=== PATIENT | male | born 1970 | race Native Hawaiian/Other Pacific Islander ===

== ENCOUNTER 2021-03-13 19:32 | Inpatient (IN) | payer OTHER ==
[~2021-03-13] VITALS: Ht 172.7 cm; Wt 112.4 kg
[2021-03-13 20:20] LABS: BASOPHILS % (AUTO) 1 % (0-10); EOSINOPHILS % (AUTO) 1 % (0-10); HEMATOCRIT 45 % (40-54); HEMOGLOBIN 15.8 G/DL (13.3-17.7); LYMPHOCYTES % (AUTO) 13 % (12-44); MEAN CORPUSCULAR HEMOGLOBIN 33 PG (25-34); MEAN CORPUSCULAR HGB CONC 35 G/DL (32-36); MEAN CORPUSCULAR VOLUME 96 FL (80-99); MEAN PLATELET VOLUME 11.1 FL (7.4-10.4); MONOCYTES % (AUTO) 10 % (0-12); NEUTROPHILS % (AUTO) 75 % (42-75); PLATELET COUNT 196 10^3/uL (130-400); WHITE BLOOD COUNT 8.5 10^3/uL (4.3-11.0)
[2021-03-13 20:21] LABS: BASOPHILS # (AUTO) 0.1 10^3/uL (0.0-0.1); LYMPHOCYTES # (AUTO) 1.1 X 10^3 (1.0-4.0); MONOCYTES # (AUTO) 0.9 X 10^3 (0.0-1.0); NEUTROPHILS # (AUTO) 6.4 X 10^3 (1.8-7.8)
[2021-03-13] MEDS ORDERED: NS IV 1000 ML 1,000 ML IV SCH (20:30)
[2021-03-13] MEDS ORDERED: FAMOTIDINE 20MG/2ML IV (PEPCID) IVP ONE (20:30)
[2021-03-13] MEDS ORDERED: ONDANSETRON 4 MG/2 ML (SDV) Z0FRAN IVP ONE (20:30)
[2021-03-13 20:36] LABS: BUN/CREATININE RATIO 9; CARBON DIOXIDE 27 MMOL/L (21-32); CHLORIDE 87 MMOL/L (98-107); CREATININE SERUM 0.97 MG/DL (0.60-1.30); GFR ESTIMATED 82; POTASSIUM 3.7 MMOL/L (3.6-5.0); SODIUM 136 MMOL/L (135-145)
[2021-03-13 20:37] LABS: ALANINE AMINOTRANSFERASE 35 U/L (0-55); ALBUMIN 4.6 GM/DL (3.2-4.5); ALKALINE PHOSPHATASE 72 U/L (40-136); BILIRUBIN,TOTAL 2.5 MG/DL (0.1-1.0); CALCIUM 10.5 MG/DL (8.5-10.1); GLUCOSE 117 MG/DL (70-105)
[2021-03-13] MEDS ORDERED: LORazepam INJ 2 MG/ML (ATIVAN) VIAL IVP ONE (21:00)
[2021-03-13 23:02] LABS: AMPHETAMINE SCREEN, URINE NEGATIVE (NEGATIVE); BARBITURATE SCREEN URINE NEGATIVE (NEGATIVE); BENZODIAZEPINES SCREEN URINE POSITIVE (NEGATIVE); CANNABINOID SCREEN, URINE POSITIVE (NEGATIVE); COCAINE SCREEN URINE NEGATIVE (NEGATIVE); METHADONE STAT NEGATIVE (NEGATIVE); METHAMPHETAMINE SCREEN URINE S NEGATIVE (NEGATIVE); OPIATE SCREEN URINE NEGATIVE (NEGATIVE); OXYCODONE STAT NEGATIVE (NEGATIVE); PROPOXYPHENE STAT NEGATIVE (NEGATIVE); TRICYCLIC ANTIDEPRESSANTS SCRE NEGATIVE (NEGATIVE)
--- NOTE | 2021-03-14 00:27 | ED General ---
General Chief Complaint: Abdominal/GI Problems Stated Complaint: DEHYDRATION;VOMITING Nursing Triage Note: Pt in per POV, with c/o nausea and vomiting for almost 2 weeks. Down here visiting when he got sick. States it is just mucous and only X1 in the past 12 hours. Denies diarrhea. Source of Information: Patient Exam Limitations: No Limitations History of Present Illness Date Seen by Provider: Mar 13, 2021 Time Seen by Provider: 19:45 Initial Comments Patient is a 50-year-old male who presents with history of alcoholism who presents with intermittent daily nausea and vomiting with epigastric pain for the past several days. Patient states he has vomited twice earlier today. He has been binge drinking daily for the past 2 weeks and states he is under significant social stress due to impending divorce. Patient reports a single episode of vertigo earlier this evening described as the room spinning. Vertigo was associated with a brief syncopal episode and has currently resolved. Denies headache and anterior neck pain. No fever chills or sweats. Currently denies abdominal pain. No hematemesis coffee-ground emesis melena hematochezia. No other acute symptoms or complaints. Denies history of alcohol withdrawal seizures Timing/Duration: Other Severity: Moderate (2 weeks) Modifying Factors: improves with Other Associated Systoms: Other Allergies and Home Medications Allergies Coded Allergies: No Known Drug Allergies (Unverified , 03/13/21) Patient Home Medication List Home Medication List Reviewed: Yes Review of Systems Review of Systems Constitutional: see HPI EENTM: see HPI Respiratory: see HPI Cardiovascular: see HPI Gastrointestinal: see HPI Genitourinary: see HPI Musculoskeletal: see HPI Skin: see HPI Psychiatric/Neurological: See HPI Hematologic/Lymphatic: See HPI Immunological/Allergic: see HPI All Other Systems Reviewed Negative Unless Noted: Yes Past Tkpthaq-Mbevjd-Kykumn Hx Patient Social History Tobacco Use?: No Use of E-Cig and/or Vaping dev: No Substance use?: No Alcohol Use?: Yes Immunizations Up To Date Influenza Vaccine Up-to-Date: Yes; Up-to-Date First/Initial COVID19 Vaccinat: october 2020 Physical Exam Vital Signs Vital Signs - First Documented 03/13/21 19:43 Temp 36.4 Pulse 119 Resp 14 B/P (MAP) 141/102 (115) O2 Delivery Room Air Capillary Refill : Less Than 3 Seconds Height, Weight, BMI Height: '" Weight: lbs. oz. kg; 39.00 BMI Method: General Appearance: Anxious Eyes: Bilateral Eye Normal Inspection, Bilateral Eye PERRL, Bilateral Eye EOMI HEENT: PERRL/EOMI, TMs Normal, Moist Mucous Membranes Neck: Full Range of Motion, Non Tender, Supple Respiratory: Chest Non Tender, Lungs Clear Cardiovascular: Regular Rate, Rhythm Gastrointestinal: Non Tender, Soft Back: Normal Inspection, No CVA Tenderness Neurologic/Psychiatric: Alert, Oriented x3 Skin: Normal Color, Warm/Dry Focused Exam Sepsis Stage: Ruled Out Progress/Results/Core Measures Suspected Sepsis SIRS Temperature: Pulse: 119 Respiratory Rate: 14 Laboratory Tests 03/13/21 19:43: White Blood Count 8.5 Blood Pressure 141 /102 Mean: 115 Laboratory Tests 03/13/21 19:43: Creatinine 0.97, Platelet Count 196, Total Bilirubin 2.5H Results/Orders Lab Results Laboratory Tests Test 03/13/21 19:43 03/13/21 22:22 Range/Units White Blood Count 8.5 4.3-11.0 10^3/uL Red Blood Count 4.72 4.35-5.85 10^6/uL Hemoglobin 15.8 13.3-17.7 G/DL Hematocrit 45 40-54 % Mean Corpuscular Volume 96 80-99 FL Mean Corpuscular Hemoglobin 33 25-34 PG Mean Corpuscular Hemoglobin Concent 35 32-36 G/DL Red Cell Distribution Width 13.3 10.0-14.5 % Platelet Count 196 130-400 10^3/uL Mean Platelet Volume 11.1 H 7.4-10.4 FL Immature Granulocyte % (Auto) 0 % Neutrophils (%) (Auto) 75 42-75 % Lymphocytes (%) (Auto) 13 12-44 % Monocytes (%) (Auto) 10 0-12 % Eosinophils (%) (Auto) 1 0-10 % Basophils (%) (Auto) 1 0-10 % Neutrophils # (Auto) 6.4 1.8-7.8 X 10^3 Lymphocytes # (Auto) 1.1 1.0-4.0 X 10^3 Monocytes # (Auto) 0.9 0.0-1.0 X 10^3 Eosinophils # (Auto) 0.0 0.0-0.3 10^3/uL Basophils # (Auto) 0.1 0.0-0.1 10^3/uL Immature Granulocyte # (Auto) 0.0 0.0-0.1 10^3/uL Sodium Level 136 135-145 MMOL/L Potassium Level 3.7 3.6-5.0 MMOL/L Chloride Level 87 L 98-107 MMOL/L Carbon Dioxide Level 27 21-32 MMOL/L Anion Gap 22 H 5-14 MMOL/L Blood Urea Nitrogen 9 7-18 MG/DL Creatinine 0.97 0.60-1.30 MG/DL Estimat Glomerular Filtration Rate 82 BUN/Creatinine Ratio 9 Glucose Level 117 H 70-105 MG/DL Calcium Level 10.5 H 8.5-10.1 MG/DL Corrected Calcium 8.5-10.1 MG/DL Total Bilirubin 2.5 H 0.1-1.0 MG/DL Aspartate Amino Transf (AST/SGOT) 77 H 5-34 U/L Alanine Aminotransferase (ALT/SGPT) 35 0-55 U/L Alkaline Phosphatase 72 40-136 U/L Troponin I < 0.30 <0.30 NG/ML Total Protein 9.0 H 6.4-8.2 GM/DL Albumin 4.6 H 3.2-4.5 GM/DL Serum Alcohol < 10 <10 MG/DL Urine Opiates Screen NEGATIVE NEGATIVE Urine Oxycodone Screen NEGATIVE NEGATIVE Urine Methadone Screen NEGATIVE NEGATIVE Urine Propoxyphene Screen NEGATIVE NEGATIVE Urine Barbiturates Screen NEGATIVE NEGATIVE Ur Tricyclic Antidepressants Screen NEGATIVE NEGATIVE Urine Phencyclidine Screen NEGATIVE NEGATIVE Urine Amphetamines Screen NEGATIVE NEGATIVE Urine Methamphetamines Screen NEGATIVE NEGATIVE Urine Benzodiazepines Screen POSITIVE H NEGATIVE Urine Cocaine Screen NEGATIVE NEGATIVE Urine Cannabinoids Screen POSITIVE H NEGATIVE My Orders Orders - RIGO DODD DO Cbc With Automated Diff (03/13/21 20:12) Comprehensive Metabolic Panel (03/13/21 20:12) Troponin I Fs (03/13/21 20:12) Ekg-Prn For Chest Pain Or Rhyt (03/13/21 20:12) Famotidine Injection (Pepcid Injection) (03/13/21 20:30) Ondansetron Injection (Zofran Injectio (03/13/21 20:30) Ns Iv 1000 Ml (Sodium Chloride 0.9%) (03/13/21 20:30) Lorazepam Injection (Ativan Injection) (03/13/21 21:00) Alcohol (03/13/21 20:50) Drug Screen Stat (Urine) (03/13/21 21:39) Medications Given in ED Current Medications Medications Dose Ordered Sig/Nirmala Route Start Time Stop Time Status Last Admin Dose Admin Famotidine 20 mg ONCE ONCE IVP 03/13/21 20:30 03/13/21 20:31 DC 03/13/21 20:40 20 MG Lorazepam 1 mg ONCE ONCE IVP 03/13/21 21:00 03/13/21 21:01 DC 03/13/21 21:23 1 MG Ondansetron HCl 4 mg ONCE ONCE IVP 03/13/21 20:30 03/13/21 20:31 DC 03/13/21 20:40 4 MG Vital Signs/I&O 03/13/21 19:43 Temp 36.4 Pulse 119 Resp 14 B/P (MAP) 141/102 (115) O2 Delivery Room Air Capillary Refill : Less Than 3 Seconds Blood Pressure Mean: 115 Departure Communication (Admissions) EKG: Date 03/13/2021, 21: 39: Sinus tachycardia, ST elevation in anterior lateral leads. Patient given IV fluids, antiemetics, Pepcid and Ativan with significant provement of symptoms. Denies history of CAD or chest pain. Patient with notable ST changes present. Troponin negative. Will transfer to [facility] for treatment of alcoholic gastritis and further cardiac work-up Impression Primary Impression: Alcoholic gastritis Additional Impression: Abnormal EKG Disposition: ADMITTED INPATIENT Condition: Stable Admissions Decision to Admit Reason: Admit from ER (General) Decision to Admit/Date: Mar 13, 2021 Time/Decision to Admit Time: 22:45 Departure-Patient Inst. Referrals: NO,LOCAL PHYSICIAN (PCP/Family) Primary Care Physician RIGO DODD DO Mar 14, 2021 00:27
[2021-03-14] MEDS ORDERED: NS IV 1000 ML 1,000 ML ONE (01:29)
[2021-03-14 01:31] VITALS: BP 131/95
[2021-03-14] MEDS ORDERED: ONDANSETRON 4 MG/2 ML (SDV) Z0FRAN IV PRN ×2 (01:45→18:30)
[2021-03-14] MEDS: NS IV 1000 ML 1,000 ML IV SCH ×2 (02:11→09:53)
[2021-03-14 03:52] LABS: BASOPHILS # (AUTO) 0.1 10^3/uL (0.0-0.1); BASOPHILS % (AUTO) 1 % (0-10); EOSINOPHILS % (AUTO) 1 % (0-10); HEMATOCRIT 40 % (40-54); HEMOGLOBIN 13.6 g/dL (13.3-17.7); LYMPHOCYTES # (AUTO) 1.3 10^3/uL (1.0-4.0); LYMPHOCYTES % (AUTO) 23 % (12-44); MEAN CORPUSCULAR HEMOGLOBIN 33 pg (25-34); MEAN CORPUSCULAR HGB CONC 34 g/dL (32-36); MEAN CORPUSCULAR VOLUME 99 fL (80-99); MEAN PLATELET VOLUME 11.2 fL (9.0-12.2); MONOCYTES # (AUTO) 0.7 10^3/uL (0.0-1.0); MONOCYTES % (AUTO) 13 % (0-12); NEUTROPHILS # (AUTO) 3.5 10^3/uL (1.8-7.8); NEUTROPHILS % (AUTO) 62 % (42-75); PLATELET COUNT 160 10^3/uL (130-400); WHITE BLOOD COUNT 5.6 10^3/uL (4.3-11.0)
[2021-03-14 04:03] LABS: ALBUMIN 3.8 GM/DL (3.2-4.5); CHLORIDE 94 MMOL/L (98-107); POTASSIUM 3.3 MMOL/L (3.6-5.0); SODIUM 138 MMOL/L (135-145)
[2021-03-14 04:04] LABS: CALCIUM 9.2 MG/DL (8.5-10.1)
[2021-03-14 04:05] LABS: GLUCOSE 97 MG/DL (70-105); TOTAL PROTEIN 7.7 GM/DL (6.4-8.2)
[2021-03-14 04:07] LABS: BILIRUBIN,TOTAL 1.9 MG/DL (0.1-1.0); CARBON DIOXIDE 26 MMOL/L (21-32)
[2021-03-14 04:09] LABS: ALKALINE PHOSPHATASE 54 U/L (40-136); CREATININE SERUM 0.96 MG/DL (0.60-1.30); GFR ESTIMATED 83
[2021-03-14 04:10] LABS: BUN/CREATININE RATIO 9
[2021-03-14 04:12] LABS: ALANINE AMINOTRANSFERASE 31 U/L (0-55)
[2021-03-14 04:32] VITALS: BP 122/66
[2021-03-14] MEDS ORDERED: ACETAMINOPHEN 500 MG TAB (TYLENOL) PO PRN (06:15)
[2021-03-14] MEDS: PANTOPRAZOLE 40 MG (PROTONIX) VIAL IV SCH ×2 (07:45→20:12)
[2021-03-14 08:09] VITALS: BP 154/103
[2021-03-14] MEDS ORDERED: meTOproloL SUCCINATE 50 MG (TOPROL XL) TAB PO NR (08:31)
[2021-03-14] MEDS ORDERED: MAGNESIUM 1 GM/100 ML IVPB 100 ML IV NR (08:31)
[2021-03-14] MEDS ORDERED: KCL 20 MEQ TAB (K-DUR) PO NR (08:31)
--- NOTE | 2021-03-14 08:31 | Consultation-Cardiology ---
HPI-Cardiology Cardiology Consultation: Date of Consultation 03/14/21 Time Seen by a Provider: 08:10 Date of Admission 03-13-21 Attending Physician Rg Perez MD Admitting Physician No,Local Physician Consulting Physician Juan Arrieta MD HPI: Chief Complaint: Syncope Mr. Mei is a 50 yr old male admitted to [facility] from the [facility] ED. He reports he is from [place], [place] and has been visiting a friend in [facility] since February 23. [facility] [place] He reports he drinks approx 1/5 of Vodka daily. He states his last drink was a day ago. He reports he was getting out of the shower at home yesterday morning when he began to feel weak and dizzy. He reports he went to grab his clothes and "blacked out" coming to when he hit the floor. He reports he was able to get up and then he subsequently passed out again, this time he believes he was out for several minutes, but is unsure. He states he got up slowly and has had no further episodes. He reports he has had n/v for the last several weeks. He denies any c/o CP, SOB, palpitations. No c/o LE swelling. He reports he continues to feel nauseated. Review of Systems-Cardiology Review of Systems Constitutional: No chills, No fever; malaise Eyes: No vision change Ears/Nose/Throat: No epistaxis, No recent hearing loss Respiratory: As described under HPI Cardiovascular: As described under HPI Gastrointestinal: As described under HPI Genitourinary: No dysuria, No hematuria Musculoskeletal: other (chronic right FA pain and first 3 digit numbness following surgery) Skin: No rash on exposed areas, No ulcerations on exposed areas Psychiatric/Neurological: depression; No anxiety, No focal weakness, No syncope Hematologic: No bleeding abnormalities All Other Systems Reviewed Negative Unless Noted: Yes QAB-Oyyzdc-Hjnbzl Hx Patient Social History Smoking Status: Never a Smoker Have you traveled recently?: No Alcohol Use?: Yes Pt feels they are or have been: No Past Medical History PMH As described under Assessment. Family Medical History Family Medical History: No reported family h/o CAD. Allergies and Home Medications Allergies Coded Allergies: No Known Drug Allergies (Unverified , 03/13/21) Physical Exam-Cardiology Physical Exam Vital Signs/I&O 03/13/21 03/13/21 03/14/21 03/14/21 21:15 22:30 00:32 00:49 Temp 36.4 36.4 36.4 36.4 Pulse 111 113 116 104 Resp 14 16 14 B/P (MAP) 148/102 (117) 138/101 (113) 129/90 (103) 141/89 Pulse Ox 97 98 O2 Delivery Room Air Room Air Room Air Room Air 03/14/21 03/14/21 03/14/21 03/14/21 01:31 01:31 02:00 04:32 Temp 36.7 Pulse 112 103 70 Resp 14 27 B/P (MAP) 131/95 (107) 122/66 (84) Pulse Ox 95 96 O2 Delivery Room Air Room Air Room Air 03/14/21 03/14/21 07:00 08:09 Temp 36.0 Pulse 92 100 Resp 13 B/P (MAP) 154/103 (120) Pulse Ox 96 O2 Delivery Room Air Capillary Refill : Less Than 3 Seconds Constitutional: AAO x 3, well-developed, well-nourished HEENT: PERRL, hearing is well preserved, oral hygience is good Neck: No carotid bruit; carotid pulses are 2 + bilaterally Respiratory: No accessory muscle use, No respiratory distress; chest expansion is symmetric, chest is bilaterally symmetric, lungs clear to auscultation Cardiovascular: regular rate-rhythm; No JVD; S1 and S2 Gastrointestinal: No tender; soft, round, audible bowel sounds Extremities: no lower extremity edema bilateral Neurologic/Psychiatric: grossly intact (moves all extremities) Skin: No rash on exposed areas, No ulcerations on exposed areas Data Review Labs Laboratory Tests 03/13/21 19:43: White Blood Count 8.5, Red Blood Count 4.72, Hemoglobin 15.8, Hematocrit 45, Mean Corpuscular Volume 96, Mean Corpuscular Hemoglobin 33, Mean Corpuscular Hemoglobin Concent 35, Red Cell Distribution Width 13.3, Platelet Count 196, Mean Platelet Volume 11.1H, Immature Granulocyte % (Auto) 0, Neutrophils (%) (Auto) 75, Lymphocytes (%) (Auto) 13, Monocytes (%) (Auto) 10, Eosinophils (%) (Auto) 1, Basophils (%) (Auto) 1, Neutrophils # (Auto) 6.4, Lymphocytes # (Auto) 1.1, Monocytes # (Auto) 0.9, Eosinophils # (Auto) 0.0, Basophils # (Auto) 0.1, Immature Granulocyte # (Auto) 0.0, Sodium Level 136, Potassium Level 3.7, Chloride Level 87L, Carbon Dioxide Level 27, Anion Gap 22H, Blood Urea Nitrogen 9, Creatinine 0.97, Estimat Glomerular Filtration Rate 82, BUN/Creatinine Ratio 9, Glucose Level 117H, Calcium Level 10.5H, Corrected Calcium , Total Bilirubin 2.5H, Aspartate Amino Transf (AST/SGOT) 77H, Alanine Aminotransferase (ALT/SGPT) 35, Alkaline Phosphatase 72, Troponin I < 0.30, Total Protein 9.0H, Albumin 4.6H , Serum Alcohol < 10 03/13/21 22:22: Urine Opiates Screen NEGATIVE, Urine Oxycodone Screen NEGATIVE, Urine Methadone Screen NEGATIVE, Urine Propoxyphene Screen NEGATIVE, Urine Barbiturates Screen NEGATIVE, Ur Tricyclic Antidepressants Screen NEGATIVE, Urine Phencyclidine Screen NEGATIVE, Urine Amphetamines Screen NEGATIVE, Urine Methamphetamines Screen NEGATIVE, Urine Benzodiazepines Screen POSITIVEH, Urine Cocaine Screen NEGATIVE, Urine Cannabinoids Screen POSITIVEH 03/14/21 03:21: White Blood Count 5.6, Red Blood Count 4.10L, Hemoglobin 13.6, Hematocrit 40, Mean Corpuscular Volume 99, Mean Corpuscular Hemoglobin 33, Mean Corpuscular Hemoglobin Concent 34, Red Cell Distribution Width 13.3, Platelet Count 160, Mean Platelet Volume 11.2, Immature Granulocyte % (Auto) 0, Neutrophils (%) (Auto) 62, Lymphocytes (%) (Auto) 23, Monocytes (%) (Auto) 13H, Eosinophils (%) (Auto) 1, Basophils (%) (Auto) 1, Neutrophils # (Auto) 3.5, Lymphocytes # (Auto) 1.3, Monocytes # (Auto) 0.7, Eosinophils # (Auto) 0.0, Basophils # (Auto) 0.1, Immature Granulocyte # (Auto) 0.0, Sodium Level 138, Potassium Level 3.3L, C hloride Level 94L, Carbon Dioxide Level 26, Anion Gap 18H, Blood Urea Nitrogen 9, Creatinine 0.96, Estimat Glomerular Filtration Rate 83, BUN/Creatinine Ratio 9, Glucose Level 97, Calcium Level 9.2, Corrected Calcium 9.4, Total Bilirubin 1.9H, Aspartate Amino Transf (AST/SGOT) 64H, Alanine Aminotransferase (ALT/SGPT) 31, Alkaline Phosphatase 54, Troponin I < 0.028, Total Protein 7.7, Albumin 3.8 Laboratory Tests 03/13/21 19:43 03/14/21 03:21 A/P-Cardiology Assessment/Admission Diagnosis Syncope of undetermined etiology HTN GERD Sleep apnea - CPAP tx Nausea and vomiting of undetermined etiology - medical services managing ETOH - 1/5 Vodka daily - immediate cessation advised Hypokalemia - likely secondary to chronic ETOH usage and vomiting Discussion and Recomendations Syncope of undetermined etiology - continue on tele to eval for arrhythmia Hypertension - start Toprol XL Repeat EKG Replace electrolytes Echocardiogram to eval structure and function Monitor lab Replace as indicated Management of n/v is per medical services Immediate and complete cessation of ETOH advise - monitor for withdrawal - management per medical Further recs will be based on his hospital course We would like to thank medical services for this consult GREG HENRY Mar 14, 2021 08:31
[2021-03-14] MEDS: meTOproloL SUCCINATE 50 MG (TOPROL XL) TAB PO SCH (08:43)
[2021-03-14] MEDS ORDERED: FAMOTIDINE 20MG/2ML IV (PEPCID) IVP SCH (09:00)
[2021-03-14] MEDS ORDERED: ASPIRIN 81 MG CHEW (CHILDREN'S ASA) PO SCH (09:00)
[2021-03-14 11:00] VITALS: BP 145/81
[2021-03-14] MEDS ORDERED: ACET-2267 PO (13:25)
[2021-03-14] MEDS ORDERED: PANT40TA52 PO (13:25)
--- NOTE | 2021-03-14 14:18 | Consultation - Surgery ---
History of Present Illness History of Present Illness Patient Consulted On(pushpa/time) 03/14/21 14:18 Date Seen by Provider: Mar 14, 2021 Time Seen by Provider: 14:18 History of Present Illness Consult requested by Dr. Green for gastritis. Patient is a 50 year old male from [facility]. Here visiting family. Has been drinking daily about a 1/5 per day of alcohol. Has been having nausea and vomiting. Worsened with drinking, better with not drinking. Typically does not drink this month but has increased since being here. Patient has also had couple episodes of passing out and came to ED for further evaluation. Patient states last time he had emesis was early this morning. No blood in emesis. Patient denies fever sweats chills shortness of breath or chest pain. Has not had any imaging. Allergies and Home Medications Allergies Coded Allergies: No Known Drug Allergies (Unverified , 03/13/21) Home Medications Acetaminophen 500 Mg Tablet, 1,000 MG PO Q8H PRN for PAIN-MILD (1-4), (Reported) Last Action: Reviewed Pantoprazole Sodium 40 Mg Tablet.dr, 40 MG PO BID, (Reported) Last Action: Reviewed Patient Home Medication List Home Medication List Reviewed: Yes Past Nqchkad-Yharfv-Psieku Hx Patient Social History Smoking Status: Never a Smoker Alcohol Use?: Yes Have you traveled recently?: No Surgeries History of Surgeries: No Respiratory History of Respiratory Disorde: No Cardiovascular History of Cardiac Disorders: No Neurological History of Neurological Disord: No Genitourinary History of Genitourinary Disor: No Gastrointestinal History of Gastrointestinal Di: No Musculoskeletal History of Musculoskeletal Dis: No Endocrine History of Endocrine Disorders: No HEENT History of HEENT Disorders: No Cancer History of Cancer: No Psychosocial Behavioral Health Disorders: PTSD Reviewed Nursing Assessment Reviewed/Agree w Nursing PMH: Yes Family Medical History Significant Family History: No Pertinent Family Hx Review of Systems-General Constitutional: No chills, No diaphoresis EENTM: No blurred vision, No double vision Cardiovascular: syncope Gastrointestinal: No abdominal pain; nausea, vomiting Genitourinary: No decreased output, No discharge Musculoskeletal: No back pain, No joint pain Skin: No change in color, No change in hair/nails Psychiatric/Neurological: Denies Anxiety, Denies Depressed, Denies Emotional Problems All Other Systems Reviewed Negative Unless Noted: Yes (Negative excepted noted.) Physical Exam-General Problems Physical Exam Vital Signs Vital Signs - First Documented 03/13/21 03/13/21 19:43 22:30 Temp 36.4 Pulse 119 Resp 14 B/P (MAP) 141/102 (115) Pulse Ox 97 O2 Delivery Room Air Capillary Refill : Less Than 3 Seconds General Appearance: WD/WN, no apparent distress HEENT: PERRL/EOMI, normal ENT inspection Neck: non-tender, supple Respiratory: chest non-tender, no respiratory distress, no accessory muscle use Cardiovascular: regular rate, rhythm, no JVD Gastrointestinal: non tender, soft, no organomegaly Rectal: deferred Back: normal inspection, no CVA tenderness, no vertebral tenderness Extremities: normal range of motion, non-tender Neurologic/Psychiatric: ticket manager II-XII nml as tested, no motor/sensory deficits, alert, normal mood/affect, oriented x 3 Skin: normal color, warm/dry Lymphatic: no adenopathy Data Review Labs Laboratory Tests 03/13/21 19:43: White Blood Count 8.5, Red Blood Count 4.72, Hemoglobin 15.8, Hematocrit 45, Mean Corpuscular Volume 96, Mean Corpuscular Hemoglobin 33, Mean Corpuscular Hemoglobin Concent 35, Red Cell Distribution Width 13.3, Platelet Count 196, Mean Platelet Volume 11.1H, Immature Granulocyte % (Auto) 0, Neutrophils (%) (Auto) 75, Lymphocytes (%) (Auto) 13, Monocytes (%) (Auto) 10, Eosinophils (%) (Auto) 1, Basophils (%) (Auto) 1, Neutrophils # (Auto) 6.4, Lymphocytes # (Auto) 1.1, Monocytes # (Auto) 0.9, Eosinophils # (Auto) 0.0, Basophils # (Auto) 0.1, Immature Granulocyte # (Auto) 0.0, Sodium Level 136, Potassium Level 3.7, Chloride Level 87L, Carbon Dioxide Level 27, Anion Gap 22H, Blood Urea Nitrogen 9, Creatinine 0.97, Estimat Glomerular Filtration Rate 82, BUN/Creatinine Ratio 9, Glucose Level 117H, Calcium Level 10.5H, Corrected Calcium , Total Bilirubin 2.5H, Aspartate Amino Transf (AST/SGOT) 77H, Alanine Aminotransferase (ALT/SGPT) 35, Alkaline Phosphatase 72, Troponin I < 0.30, Total Protein 9.0H, Albumin 4.6H , Serum Alcohol < 10 03/13/21 22:22: Urine Opiates Screen NEGATIVE, Urine Oxycodone Screen NEGATIVE, Urine Methadone Screen NEGATIVE, Urine Propoxyphene Screen NEGATIVE, Urine Barbiturates Screen NEGATIVE, Ur Tricyclic Antidepressants Screen NEGATIVE, Urine Phencyclidine Screen NEGATIVE, Urine Amphetamines Screen NEGATIVE, Urine Methamphetamines Screen NEGATIVE, Urine Benzodiazepines Screen POSITIVEH, Urine Cocaine Screen NEGATIVE, Urine Cannabinoids Screen POSITIVEH 03/14/21 03:21: White Blood Count 5.6, Red Blood Count 4.10L, Hemoglobin 13.6, Hematocrit 40, Mean Corpuscular Volume 99, Mean Corpuscular Hemoglobin 33, Mean Corpuscular Hemoglobin Concent 34, Red Cell Distribution Width 13.3, Platelet Count 160, Mean Platelet Volume 11.2, Immature Granulocyte % (Auto) 0, Neutrophils (%) (Auto) 62, Lymphocytes (%) (Auto) 23, Monocytes (%) (Auto) 13H, Eosinophils (%) (Auto) 1, Basophils (%) (Auto) 1, Neutrophils # (Auto) 3.5, Lymphocytes # (Auto) 1.3, Monocytes # (Auto) 0.7, Eosinophils # (Auto) 0.0, Basophils # (Auto) 0.1, Immature Granulocyte # (Auto) 0.0, Sodium Level 138, Potassium Level 3.3L, Chloride Level 94L, Carbon Dioxide Level 26, Anion Gap 18H, Blood Urea Nitrogen 9, Creatinine 0.96, Estimat Glomerular Filtration Rate 83, BUN/Creatinine Ratio 9, Glucose Level 97, Calcium Level 9.2, Corrected Calcium 9.4, Total Bilirubin 1.9H, Aspartate Amino Transf (AST/SGOT) 64H, Alanine Aminotransferase (ALT/SGPT) 31, Alkaline Phosphatase 54, Troponin I < 0.028, Total Protein 7.7, Albumin 3.8 Assessment/Plan Assessment/Plan Assessment/Plan GERD Nausea vomiting Syncope PTSD alcoholic gastritis alcohol abuse Patient no abdominal pain, last emesis/nausea this morning trial of clears rec cessation of EtOH PPI Advance diet if no further n/v Cardiology consulted If continues to be persistent will consider EGD, if not, would rec patient to follow up with PCP and arrange outpatient. CHRISTOPHER RAO DO Mar 14, 2021 14:18
[2021-03-14 16:09] VITALS: BP 130/92
--- NOTE | 2021-03-14 16:17 | Consultation-Cardiology ---
HPI-Cardiology Cardiology Consultation: Date of Consultation 03/14/21 Time Seen by a Provider: 16:00 Date of Admission Attending Physician Rg Perez MD Admitting Physician No,Local Physician Consulting Physician RUTH ANGELO MD, MA, FACP, FACC, FSCAI, CCDS HPI: Chief Complaint: Syncope Mr. Mei is a 50 yr old male admitted to [facility] from the [facility] ED. He reports he is from [place], [place] and has been visiting a friend in [facility] since February 23. [facility] [place] He reports he drinks approx 1/5 of Vodka daily. He states his last drink was a day ago. He reports he was getting out of the shower at home yesterday morning when he began to feel weak and dizzy. He reports he went to grab his clothes and "blacked out" coming to when he hit the floor. He reports he was able to get up and then he subsequently passed out again, this time he believes he was out for several minutes, but is unsure. He states he got up slowly and has had no further episodes. He reports he has had n/v for the last several weeks. He denies any c/o CP, SOB, palpitations. No c/o LE swelling. He reports he continues to feel nauseated. Review of Systems-Cardiology Review of Systems Constitutional: No chills, No fever; malaise Eyes: No vision change Ears/Nose/Throat: No epistaxis, No recent hearing loss Respiratory: As described under HPI Cardiovascular: As described under HPI Gastrointestinal: As described under HPI Genitourinary: No dysuria, No hematuria Musculoskeletal: other (chronic right FA pain and first 3 digit numbness following surgery) Skin: No rash on exposed areas, No ulcerations on exposed areas Psychiatric/Neurological: depression; No anxiety, No focal weakness, No syncope Hematologic: No bleeding abnormalities All Other Systems Reviewed Negative Unless Noted: Yes BEM-Sgejfv-Hwntdb Hx Patient Social History Smoking Status: Never a Smoker Have you traveled recently?: No Alcohol Use?: Yes Pt feels they are or have been: No Past Medical History PMH As described under Assessment. Family Medical History Family Medical History: No reported family h/o CAD. Allergies and Home Medications Allergies Coded Allergies: No Known Drug Allergies (Unverified , 03/13/21) Home Medications Acetaminophen 500 Mg Tablet, 1,000 MG PO Q8H PRN for PAIN-MILD (1-4), (Reported) Last Action: Reviewed Pantoprazole Sodium 40 Mg Tablet.dr, 40 MG PO BID, (Reported) Last Action: Reviewed Patient Home Medication List Home Medication List Reviewed: Yes Physical Exam-Cardiology Physical Exam Vital Signs/I&O 03/14/21 03/14/21 03/14/21 03/14/21 04:32 07:00 08:09 09:40 Temp 36.0 Pulse 70 92 100 Resp 27 13 B/P (MAP) 122/66 (84) 154/103 (120) Pulse Ox 96 96 O2 Delivery Room Air Room Air Room Air 03/14/21 03/14/21 03/14/21 11:00 12:55 16:09 Temp 36.4 37.0 Pulse 79 88 89 Resp 16 18 B/P (MAP) 145/81 (102) 130/92 (105) Pulse Ox 94 94 O2 Delivery Room Air Room Air Capillary Refill : Less Than 3 Seconds Constitutional: AAO x 3, well-developed, well-nourished HEENT: PERRL, hearing is well preserved, oral hygience is good Neck: No carotid bruit; carotid pulses are 2 + bilaterally Respiratory: No accessory muscle use, No respiratory distress; chest expansion is symmetric, chest is bilaterally symmetric, lungs clear to auscultation Cardiovascular: regular rate-rhythm; No JVD; S1 and S2 Gastrointestinal: No tender; soft, round, audible bowel sounds Extremities: no lower extremity edema bilateral Neurologic/Psychiatric: oriented x 3, other (moves all limbs equally) Skin: No rash on exposed areas, No ulcerations on exposed areas Data Review Labs Laboratory Tests 03/13/21 19:43: White Blood Count 8.5, Red Blood Count 4.72, Hemoglobin 15.8, Hematocrit 45, Mean Corpuscular Volume 96, Mean Corpuscular Hemoglobin 33, Mean Corpuscular Hemoglobin Concent 35, Red Cell Distribution Width 13.3, Platelet Count 196, Mean Platelet Volume 11.1H, Immature Granulocyte % (Auto) 0, Neutrophils (%) (Auto) 75, Lymphocytes (%) (Auto) 13, Monocytes (%) (Auto) 10, Eosinophils (%) (Auto) 1, Basophils (%) (Auto) 1, Neutrophils # (Auto) 6.4, Lymphocytes # (Auto) 1.1, Monocytes # (Auto) 0.9, Eosinophils # (Auto) 0.0, Basophils # (Auto) 0.1, Immature Granulocyte # (Auto) 0.0, Sodium Level 136, Potassium Level 3.7, Chloride Level 87L, Carbon Dioxide Level 27, Anion Gap 22H, Blood Urea Nitrogen 9, Creatinine 0.97, Estimat Glomerular Filtration Rate 82, BUN/Creatinine Ratio 9, Glucose Level 117H, Calcium Level 10.5H, Corrected Calcium , Total Bilirubin 2.5H, Aspartate Amino Transf (AST/SGOT) 77H, Alanine Aminotransferase (ALT/SGPT) 35, Alkaline Phosphatase 72, Troponin I < 0.30, Total Protein 9.0H, Albumin 4.6H , Serum Alcohol < 10 03/13/21 22:22: Urine Opiates Screen NEGATIVE, Urine Oxycodone Screen NEGATIVE, Urine Methadone Screen NEGATIVE, Urine Propoxyphene Screen NEGATIVE, Urine Barbiturates Screen NEGATIVE, Ur Tricyclic Antidepressants Screen NEGATIVE, Urine Phencyclidine Screen NEGATIVE, Urine Amphetamines Screen NEGATIVE, Urine Methamphetamines Screen NEGATIVE, Urine Benzodiazepines Screen POSITIVEH, Urine Cocaine Screen NEGATIVE, Urine Cannabinoids Screen POSITIVEH 03/14/21 03:21: White Blood Count 5.6, Red Blood Count 4.10L, Hemoglobin 13.6, Hematocrit 40, Mean Corpuscular Volume 99, Mean Corpuscular Hemoglobin 33, Mean Corpuscular Hemoglobin Concent 34, Red Cell Distribution Width 13.3, Platelet Count 160, Mean Platelet Volume 11.2, Immature Granulocyte % (Auto) 0, Neutrophils (%) (Auto) 62, Lymphocytes (%) (Auto) 23, Monocytes (%) (Auto) 13H, Eosinophils (%) (Auto) 1, Basophils (%) (Auto) 1, Neutrophils # (Auto) 3.5, Lymphocytes # (Auto) 1.3, Monocytes # (Auto) 0.7, Eosinophils # (Auto) 0.0, Basophils # (Auto) 0.1, Immature Granulocyte # (Auto) 0.0, Sodium Level 138, Potassium Level 3.3L, Chloride Level 94L, Carbon Dioxide Level 26, Anion Gap 18H, Blood Urea Nitrogen 9, Creatinine 0.96, Estimat Glomerular Filtration Rate 83, BUN/Creatinine Ratio 9, Glucose Level 97, Calcium Level 9.2, Corrected Calcium 9.4, Total Bilirubin 1.9H, Aspartate Amino Transf (AST/SGOT) 64H, Alanine Aminotransferase (ALT/SGPT) 31, Alkaline Phosphatase 54, Troponin I < 0.028, Total Protein 7.7, Albumin 3.8 03/14/21 15:58: Glucometer 99 A/P-Cardiology Assessment/Admission Diagnosis Syncope of undetermined etiology - tele has not indicated any arrhythmia, so far - no evidence of ACS - Echo of 03/14/21: LVEF 60-65%, PASP within normal limits HTN, controlled GERD Sleep apnea - CPAP tx Nausea and vomiting of undetermined etiology - medical services managing ETOH - 1/5 Vodka daily - immediate cessation advised Hypokalemia - likely secondary to chronic ETOH usage and vomiting Discussion and Recomendations Syncope of undetermined etiology - continue on tele to eval for arrhythmia. ILR advised, discussed. He has not agreed to ILR, states will consider once he is back home to [place] Hypertension - start Toprol XL Repeat EKG Replace electrolytes Monitor lab Management of n/v and possible alcohol withdrawal is with the Med Svce Immediate and complete cessation of ETOH advise - monitor for withdrawal - management per medical RUTH ANGELO MD FACP FAC CCDS Mar 14, 2021 16:17
[2021-03-14] MEDS ORDERED: ACETAMINOPHEN 325 MG TABLET PO PRN (18:30)
[2021-03-14] MEDS ORDERED: ANTACID SUSP 30 ML UDC (MYLANTA) PO PRN (18:30)
[2021-03-14] MEDS ORDERED: D5 1/2 NS 1000 ML IV SOLUTION 1,000 ML IV PRN (18:30)
[2021-03-14] MEDS ORDERED: SENNA W/DOCUSATE (SENOKOT S) TABLET PO PRN (18:30)
[2021-03-14] MEDS ORDERED: LORazepam INJ 2 MG/ML (ATIVAN) VIAL IV PRN (18:30)
[2021-03-14] MEDS ORDERED: LORazepam 1 MG (ATIVAN) TAB PO PRN (18:30)
[2021-03-14] MEDS ORDERED: 1/2 NS IV SOLUTION 1,000 ML IV PRN (18:30)
[2021-03-14] MEDS ORDERED: LORazepam INJ 2 MG/ML (ATIVAN) VIAL IM/IV PRN (18:30)
[2021-03-14] MEDS ORDERED: ENOXAPARIN 40 MG/0.4 ML (LOVENOX) SYR SC SCH (18:30)
[2021-03-14] MEDS ORDERED: ONDANSETRON 4 MG (ZOFRAN) ORAL DISSOLVE TAB SL PRN (18:30)
--- NOTE | 2021-03-14 18:32 | History & Physical-Hospitalist ---
History of Present Illness HPI/Chief Complaint Madhav Mei is a 50-year-old male who presented with nausea and vomiting. He reports that this has been going on for couple weeks. He has been drinking daily for about 3 or 4 weeks. He says he is undergoing a divorce. He reports that he has had alcohol withdrawal before, but has never been admitted to the hospital. His last episode of nausea and vomiting was this morning. He denies any abdominal pain. He reports some pain in his esophagus. He denies having any blood in his vomit. He denies diarrhea and blood in his stools. He says that he has had an EGD before by had does not think they found anything. He denies any chest pain or palpitations. He denies any shortness of breath. He does have a cough. He denies any fevers or chills. He reports that he had 2 episodes where he lost consciousness. Source: patient Exam Limitations: no limitations Date Seen 03/14/21 Time Seen by a Provider: 11:00 Attending Physician Rg Perez MD PCP No,Local Physician Referring Physician Date of Admission Mar 14, 2021 at 01:20 Home Medications & Allergies Home Medications Reviewed patient Home Medication Reconciliation performed by pharmacy medication reconciliations wafer fabrication technician and/or nursing. Patients Allergies have been reviewed. Allergies Allergies Coded Allergies No Known Drug Allergies (Unverified03/13/21) Past Bgzsfgj-Qgbwhz-Tvmruo Hx Patient Social History Marrital Status: Tobacco Use?: No Smoking Status: Never a Smoker Smokeless Tobacco Frequency: Never a User Use of E-Cig and/or Vaping dev: No Substance use?: No Alcohol Use?: Yes Alcohol type: Beer Alcohol Frequency: Couple times a week Additional Alcohol Comments: SOCIAL Pt feels they are or have been: No Immunizations Up To Date First/Initial COVID19 Vaccinat: 11/05/20 Second COVID19 Vaccination Aba: 11/26/20 Tetanus Booster (TDap): Less Than 5 Years Hepatitis A: No Hepatitis B: No Current Status Advance Directives: Yes Advance Directive Location: Home Communicates: Verbally Primary Language: Tajik Preferred Spoken Language: Tajik Is interpretation needed?: No Sensory deficits: Vision impairment, Hearing impairment Implanted or Applied Medical D: None Family Medical History No Pertinent Family Hx Review of Systems Constitutional: no symptoms reported EENTM: no symptoms reported Respiratory: cough Cardiovascular: no symptoms reported Gastrointestinal: nausea, vomiting Genitourinary: no symptoms reported Musculoskeletal: no symptoms reported Skin: no symptoms reported Psychiatric/Neurological: Anxiety Physical Exam Physical Exam Vital Signs Vital Signs - First Documented 03/13/21 03/13/21 19:43 22:30 Temp 36.4 Pulse 119 Resp 14 B/P (MAP) 141/102 (115) Pulse Ox 97 O2 Delivery Room Air Capillary Refill : Less Than 3 Seconds Height, Weight, BMI Height: '" Weight: lbs. oz. kg; 37.68 BMI Method: General Appearance: No Apparent Distress, Anxious, Obese HEENT: PERRL/EOMI, Pharynx Normal Neck: Normal Inspection, Supple Respiratory: Lungs Clear, Normal Breath Sounds, No Respiratory Distress Cardiovascular: Regular Rate, Rhythm, No Edema, No Murmur Gastrointestinal: Normal Bowel Sounds, Non Tender, Soft Extremity: Normal Inspection, Non Tender, No Pedal Edema Neurologic/Psychiatric: Alert, Oriented x3, No Motor/Sensory Deficits, Normal Mood/Affect, Other (No tremors or hallucinations) Skin: Normal Color, Warm/Dry Lymphatic: No Adenopathy Results Results/Procedures Labs Laboratory Tests 03/13/21 19:43 03/14/21 03:21 Patient resulted labs reviewed. Imaging: Reviewed Imaging Report Assessment/Plan Admission Diagnosis Alcoholic gastritis Admission Status: Inpatient Order (span 2 midnights) Reason for Inpatient Admission: Surgical and cardiology evaluation Assessment and Plan Alcoholic gastritis Alcoholic hepatitis Alcohol abuse IV PPI CIWA protocol IV fluids Vitamin supplementation Recommend cessation Surgery consultation, appreciate assistance Syncope Possibly due to alcohol use Concern for possible cardiogenic syncope Cardiology consulted, appreciate assistance EKG unremarkable Troponin negative x2 Recommending intermittent loop recorder placement, patient deferred at this time Monitor on telemetry DVT prophylaxis: Lovenox Diagnosis/Problems Diagnosis/Problems (1) Alcoholic gastritis Status: Acute (2) Alcoholic hepatitis Status: Acute Qualifiers: Ascites presence: without ascites Qualified Codes: K70.10 - Alcoholic hepatitis without ascites (3) Syncope Status: Acute (4) Obesity Status: Chronic HANS GRANT MD Mar 14, 2021 18:32
[2021-03-14] MEDS: THIAMINE INJECTION 100 MG, FOLIC ACID INJECTION 1 MG, MAGNESIUM SULFATE 2 GM, VITAMIN M... IV SCH ×5 (20:12)
[2021-03-14 20:27] VITALS: BP 136/86
[2021-03-15 00:02] VITALS: BP 138/87
[2021-03-15 02:59] VITALS: BP 152/96
[2021-03-15 05:53] LABS: POTASSIUM 3.4 MMOL/L (3.6-5.0)
[2021-03-15 05:58] LABS: PHOSPHORUS 2.1 MG/DL (2.3-4.7)
[2021-03-15 05:59] LABS: CREATININE SERUM 0.82 MG/DL (0.60-1.30)
[2021-03-15 06:01] LABS: MAGNESIUM 1.7 MG/DL (1.6-2.4)
[2021-03-15] MEDS ORDERED: POT PHOS/NA PHOS (K-PHOS NEUTRAL) PO ONE (06:30)
[2021-03-15] MEDS ORDERED: KCL 20 MEQ TAB (K-DUR) PO ONE (06:30)
[2021-03-15 08:01] VITALS: BP 156/106
[2021-03-15] MEDS: PANTOPRAZOLE 40 MG (PROTONIX) VIAL IV SCH (08:17)
[2021-03-15] MEDS: meTOproloL SUCCINATE 50 MG (TOPROL XL) TAB PO SCH (08:18)
[2021-03-15] MEDS ORDERED: ASPIRIN 81 MG CHEW (CHILDREN'S ASA) PO SCH (09:00)
[2021-03-15] MEDS ORDERED: FOLIC ACID 1 MG TAB PO SCH (09:00)
[2021-03-15] MEDS: THIAMINE INJECTION 100 MG, FOLIC ACID INJECTION 1 MG, MAGNESIUM SULFATE 2 GM, VITAMIN M... IV SCH ×5 (09:30)
[2021-03-15] MEDS ORDERED: METO50TA7 PO (09:32)
[2021-03-15] MEDS ORDERED: PANT40TA52 PO (09:32)
[2021-03-15] MEDS ORDERED: ASPI81TA64 PO (09:32)
--- NOTE | 2021-03-15 09:37 | Discharge Summary ---
Discharge Summary Hospital Course Was the Problem List Reviewed?: Yes Problems/Dx: (1) Alcoholic gastritis Status: Acute (2) Alcoholic hepatitis Status: Acute Qualifiers: Qualified Codes: K70.10 - Alcoholic hepatitis without ascites (3) Syncope Status: Acute (4) Obesity Status: Chronic Hospital Course Date of Admission: Mar 14, 2021 at 01:20 Admission Diagnosis : Alcoholic gastritis Family Physician/Provider: Bessy,Local Physician Date of Discharge: 03/15/21 Discharge Diagnosis: Alcoholic gastritis Hospital Course: Madhav Mei is a 50-year-old male who was admitted with alcoholic gastritis. He has been drinking significant amounts of alcohol every day for the past 3 to 4 weeks. He says that he is undergoing a divorce and has been under a lot of stress. He developed nausea and vomiting without hematemesis. He had previously been taking a PPI but has not been on it recently. He was restarted on pantoprazole twice daily. He should discontinue alcohol use immediately. He was also having issues with syncope. It is unclear if this was orthostatic, alcohol-related, or if there is a cardiogenic component. He was monitored on telemetry and there was no evidence of arrhythmia. Cardiology was consulted and assisted with his care. He was started on aspirin and metoprolol. He was encouraged to have an implantable loop recorder placed but he declined. He will follow up with a field superintendent closer to his home in [place]. He should follow-up with his primary care physician. He was discharged home in stable condition. Labs and Pending Lab Test: Laboratory Tests 03/14/21 15:58: Glucometer 99 03/14/21 16:18: Influenza Type A (RT-PCR) Not Detected, Influenza Type B (RT-PCR) Not Detected, SARS-CoV-2 RNA (RT-PCR) Not Detected 03/15/21 05:07: Sodium Level 136, Potassium Level 3.4L, Chloride Level 98, Carbon Dioxide Level 27, Anion Gap 11, Blood Urea Nitrogen 4L, Creatinine 0.82, Estimat Glomerular Filtration Rate 99, BUN/Creatinine Ratio 5, Glucose Level 84, Calcium Level 9.0, Phosphorus Level 2.1L, Magnesium Level 1.7 Home Meds Active Children's Aspirin (Aspirin) 81 Mg Tab.chew 81 Mg PO DAILY 30 Days Metoprolol Succinate 50 Mg Tab.er.24h 50 Mg PO DAILY 30 Days Pantoprazole Sodium 40 Mg Tablet.dr 40 Mg PO BID 30 Days Reported Tylenol Extra Strength (Acetaminophen) 500 Mg Tablet 1,000 Mg PO Q8H PRN Assessment/Pt Instructions Take medications as prescribed. Discontinue alcohol use immediately. Begin taking pantoprazole twice daily. Begin taking aspirin and metoprolol. Follow- up with your primary care physician. Follow-up with cardiology. You were recommended to have an implantable loop recorder placed. Return with worsening nausea/vomiting, lightheadedness/dizziness, or if you feel like you are getting worse. Discharge Planning: <30 minutes discharge planning Discharge Instructions Discharge Diet: No Restrictions Activity as Tolerated: Yes Consultations Cardiology Discharge Physical Examination Vital Signs Vital Signs Date Time Temp Pulse Resp B/P (MAP) Pulse Ox O2 Delivery O2 Flow Rate FiO2 03/15/21 09:00 Room Air 03/15/21 08:01 38.0 90 17 156/106 (123) 97 General Appearance: No Apparent Distress, Obese Respiratory: Lungs Clear, Normal Breath Sounds, No Respiratory Distress Cardiovascular: Regular Rate, Rhythm, No Edema, No Murmur Gastrointestinal: Normal Bowel Sounds, Non Tender, Soft Extremity: Normal Inspection, Non Tender, No Pedal Edema Skin: Normal Color, Warm/Dry Neurologic/Psychiatric: Alert, Oriented x3, No Motor/Sensory Deficits, Normal Mood/Affect Allergies: Coded Allergies: No Known Drug Allergies (Unverified , 03/13/21) Discharge Summary Date of Admission Mar 14, 2021 at 01:20 Date of Discharge Discharge Date: Mar 15, 2021 Discharge Time: 09:37 Admission Diagnosis Alcoholic gastritis Consults/Procedures Consulations Cardiology Discharge Diagnosis Alcoholic gastritis (1) Alcoholic gastritis Status: Acute (2) Alcoholic hepatitis Status: Acute Qualifiers: Qualified Codes: K70.10 - Alcoholic hepatitis without ascites (3) Syncope Status: Acute (4) Obesity Status: Chronic HANS GRANT MD Mar 15, 2021 09:37
[2021-03-15 11:36] VITALS: BP 138/93
[2021-03-15 11:53] VITALS: BP 156/106
[2021-03-16] MEDS ORDERED: THIAMINE 100 MG (VITAMIN B-1) TAB PO SCH (07:00)
[2021-03-16] MEDS ORDERED: MULTIVIT W/MINERALS TAB (THERAGRAN M) PO SCH (07:00)
[2021-03-16] MEDS ORDERED: MAGNESIUM OXIDE (MAG-OX)400 MG TAB PO SCH (09:00)
== END 2021-03-15 12:00 | disposition home or self-care (01) | DRG 392 ==
LOC: ER FS 19:34 → CSD 03-14 01:20 → 4TH 03-14 08:35
PROVIDERS: ADMIT Internal Medicine; ATTEND Internal Medicine
DX: K29.20 Alcoholic gastritis without bleeding (principal); K70.10 Alcoholic hepatitis without ascites; F10.20 Alcohol dependence, uncomplicated; F32.9 Major depressive disorder, single episode, unspecified; I10 Essential (primary) hypertension; K21.9 Gastro-esophageal reflux disease without esophagitis; G47.30 Sleep apnea, unspecified; E87.6 Hypokalemia; Z20.822 Contact with and (suspected) exposure to COVID-19; F43.10 Post-traumatic stress disorder, unspecified; E66.9 Obesity, unspecified; Z68.37 Body mass index [BMI] 37.0-37.9, adult
CPT/HCPCS: 36415; 80048; 80053; 80306; 80320; 82947; 83735; 84100; 84484; 85025; 87636; 93005; 93306

== ENCOUNTER 2021-04-09 16:42 | Emergency (ER) | payer OTHER ==
[~2021-04-09] VITALS: Ht 172 cm; Wt 104.0 kg
[~2021-04-09 16:42] MED LIST: ACET-2267 PO; ASPI81TA64 PO; METO50TA7 PO; PANT40TA52 PO
--- NOTE | 2021-04-09 16:59 | ED General ---
General Chief Complaint: Chest Pain Stated Complaint: CHEST PAIN Source of Information: Patient, EMS History of Present Illness Date Seen by Provider: Apr 09, 2021 Time Seen by Provider: 16:58 Initial Comments 50-year-old male presents via EMS from home where friend called because he was not feeling well. On arrival EMS states that no one came to the door and the called [employer] Operator department to assist. Patient was found in the basement of a 3 story home in no distress. Told EMS first that he did not feel well, and had a headache some stomach pain some nausea and then later stated that he has had some chest pain. Patient recently seen in this ER and admitted to [facility] in [place] for alcoholic gastritis and was sent home. Denies any recent alcohol use Allergies and Home Medications Allergies Coded Allergies: No Known Drug Allergies (Unverified , 03/13/21) Home Medications Acetaminophen 500 Mg Tablet, 1,000 MG PO Q8H PRN for PAIN-MILD (1-4), (Reported) Aspirin 81 Mg Tab.chew, 81 MG PO DAILY Prescribed by: HANS GRANT on 03/15/21 0932 Metoprolol Succinate 50 Mg Tab.er.24h, 50 MG PO DAILY Prescribed by: HANS GRANT on 03/15/21 0932 Pantoprazole Sodium 40 Mg Tablet.dr, 40 MG PO BID Prescribed by: HANS GRNAT on 03/15/21 09 Patient Home Medication List Home Medication List Reviewed: Yes Review of Systems Review of Systems Constitutional: No chills, No fever; malaise, weakness EENTM: no symptoms reported Respiratory: No cough, No short of breath Cardiovascular: chest pain (Intermittent, not currently); No edema, No palpitations, No syncope Gastrointestinal: abdominal pain (Intermittent and diffuse.); No constipation, No loss of appetite; nausea Genitourinary: no symptoms reported Musculoskeletal: No back pain, No joint pain Skin: No change in color, No rash Psychiatric/Neurological: Headache; Denies Numbness, Denies Paresthesia Past Jniybep-Qjimhz-Wzhacv Hx Patient Social History Tobacco Use?: Yes Alcohol Use?: Yes Past Medical History Surgeries: No Respiratory: No Cardiac: No Neurological: No Genitourinary: No Gastrointestinal: No Musculoskeletal: No Endocrine: No HEENT: No Cancer: No PTSD Family Medical History No Pertinent Family Hx Physical Exam Vital Signs Vital Signs - First Documented Capillary Refill : Less Than 3 Seconds Height, Weight, BMI Height: '" Weight: lbs. oz. kg; 37.68 BMI Method: General Appearance: No Apparent Distress, Obese, Other (Poor hygiene and disheveled appearance) Eyes: Bilateral Eye Normal Inspection, Bilateral Eye PERRL, Bilateral Eye EOMI HEENT: PERRL/EOMI, Normal ENT Inspection Neck: Non Tender, Supple Respiratory: Chest Non Tender, Lungs Clear, Normal Breath Sounds, No Accessory Muscle Use, No Respiratory Distress Cardiovascular: Regular Rate, Rhythm, No Edema Gastrointestinal: Non Tender, Soft Back: Normal Inspection Extremity: Normal Capillary Refill, Non Tender Neurologic/Psychiatric: Alert, Oriented x3, No Motor/Sensory Deficits, Normal Mood/Affect Skin: Normal Color, Warm/Dry Progress/Results/Core Measures Suspected Sepsis SIRS Temperature: Pulse: Respiratory Rate: Laboratory Tests 04/09/21 16:50: White Blood Count 6.0 Blood Pressure / Mean: Laboratory Tests 04/09/21 16:50: Creatinine 0.75, Platelet Count 154, Total Bilirubin 1.1H Results/Orders Lab Results Laboratory Tests Test 04/09/21 16:50 Range/Units White Blood Count 6.0 4.3-11.0 10^3/uL Red Blood Count 4.53 4.30-5.52 10^6/uL Hemoglobin 14.9 13.3-17.7 g/dL Hematocrit 44 40-54 % Mean Corpuscular Volume 96 80-99 fL Mean Corpuscular Hemoglobin 33 25-34 pg Mean Corpuscular Hemoglobin Concent 34 32-36 g/dL Red Cell Distribution Width 14.6 H 10.0-14.5 % Platelet Count 154 130-400 10^3/uL Mean Platelet Volume 10.4 9.0-12.2 fL Immature Granulocyte % (Auto) 0 % Neutrophils (%) (Auto) 37 L 42-75 % Lymphocytes (%) (Auto) 52 H 12-44 % Monocytes (%) (Auto) 8 0-12 % Eosinophils (%) (Auto) 2 0-10 % Basophils (%) (Auto) 1 0-10 % Neutrophils # (Auto) 2.2 1.8-7.8 X 10^3 Lymphocytes # (Auto) 3.1 1.0-4.0 X 10^3 Monocytes # (Auto) 0.5 0.0-1.0 X 10^3 Eosinophils # (Auto) 0.1 0.0-0.3 10^3/uL Basophils # (Auto) 0.1 0.0-0.1 10^3/uL Immature Granulocyte # (Auto) 0.0 0.0-0.1 10^3/uL Sodium Level 140 135-145 MMOL/L Potassium Level 3.8 3.6-5.0 MMOL/L Chloride Level 96 L 98-107 MMOL/L Carbon Dioxide Level 24 21-32 MMOL/L Anion Gap 20 H 5-14 MMOL/L Blood Urea Nitrogen 6 L 7-18 MG/DL Creatinine 0.75 0.60-1.30 MG/DL Estimat Glomerular Filtration Rate 110 BUN/Creatinine Ratio 8 Glucose Level 98 70-105 MG/DL Calcium Level 9.1 8.5-10.1 MG/DL Corrected Calcium 8.9 8.5-10.1 MG/DL Total Bilirubin 1.1 H 0.1-1.0 MG/DL Aspartate Amino Transf (AST/SGOT) 145 H 5-34 U/L Alanine Aminotransferase (ALT/SGPT) 43 0-55 U/L Alkaline Phosphatase 79 40-136 U/L Troponin I < 0.30 <0.30 NG/ML Total Protein 7.9 6.4-8.2 GM/DL Albumin 4.2 3.2-4.5 GM/DL Lipase 26 8-78 U/L Serum Alcohol 268 H <10 MG/DL My Orders Orders - ROVENSTINE,PEGGY L DO Ed Iv/Invasive Line Start (04/09/21 16:58) Cbc With Automated Diff (04/09/21 16:58) Comprehensive Metabolic Panel (04/09/21 16:58) Lipase (04/09/21 16:58) Drug Screen Stat (Urine) (04/09/21 16:58) Alcohol (04/09/21 16:58) Troponin I Fs (04/09/21 16:58) Urinalysis (04/09/21 16:58) Chest 1 View Ap/Pa Only (04/09/21 16:58) Ekg Tracing (04/09/21 16:58) Ns Iv 1000 Ml (Sodium Chloride 0.9%) (04/09/21 17:45) Vital Signs/I&O 04/09/21 04/09/21 16:45 16:45 Temp 36.8 Pulse 103 Resp 19 B/P (MAP) 113/97 (102) Pulse Ox 98 O2 Delivery Room Air Room Air Capillary Refill : Less Than 3 Seconds Diagnostic Imaging Diagonstic Imaging: Xray Comments Date of Exam:04/09/21 CHEST 1 VIEW AP/PA ONLY EXAMINATION: Chest radiograph, portable AP view. DATE: 04/09/2021 5:29 PM INDICATION: 50-year-old male, chest pain. COMPARISON: None. FINDINGS: Heart size and mediastinal contours are unremarkable. There is no identified pneumothorax. There is no large pleural effusion. There is no identified focal airspace consolidation. IMPRESSION: No identified acute cardiopulmonary abnormality. Dictated on workstation # [id number] Dict: 04/09/21 1738 Trans: 04/09/21 1747 [facility] [id number] Interpreted by: BECKIE REYNOLDS MD Electronically signed by: Departure Impression Primary Impression: Alcohol intoxication Qualified Codes: F10.929 - Alcohol use, unspecified with intoxication, unspecified Additional Impression: Alcoholic hepatitis Qualified Codes: K70.10 - Alcoholic hepatitis without ascites Disposition: 01 HOME, SELF-CARE Condition: Stable Departure-Patient Inst. Decision time for Depature: 18:21 Referrals: [facility],LOCAL PHYSICIAN (PCP) Primary Care Physician Patient Instructions: Alcohol Intoxication ED Add. Discharge Instructions: Establish and follow up with a local doctor (PCP) in 1 week All discharge instructions reviewed with patient and/or family. Voiced understanding. PEGGY CASTREJON DO Apr 09, 2021 16:59
[2021-04-09 17:07] LABS: BASOPHILS # (AUTO) 0.1 10^3/uL (0.0-0.1); BASOPHILS % (AUTO) 1 % (0-10); EOSINOPHILS # (AUTO) 0.1 10^3/uL (0.0-0.3); EOSINOPHILS % (AUTO) 2 % (0-10); HEMATOCRIT 44 % (40-54); HEMOGLOBIN 14.9 g/dL (13.3-17.7); LYMPHOCYTES # (AUTO) 3.1 X 10^3 (1.0-4.0); LYMPHOCYTES % (AUTO) 52 % (12-44); MEAN CORPUSCULAR HEMOGLOBIN 33 pg (25-34); MEAN CORPUSCULAR HGB CONC 34 g/dL (32-36); MEAN CORPUSCULAR VOLUME 96 fL (80-99); MEAN PLATELET VOLUME 10.4 fL (9.0-12.2); MONOCYTES # (AUTO) 0.5 X 10^3 (0.0-1.0); MONOCYTES % (AUTO) 8 % (0-12); NEUTROPHILS # (AUTO) 2.2 X 10^3 (1.8-7.8); NEUTROPHILS % (AUTO) 37 % (42-75); PLATELET COUNT 154 10^3/uL (130-400)
[2021-04-09 17:23] LABS: SODIUM 140 MMOL/L (135-145)
[2021-04-09 17:24] LABS: ALANINE AMINOTRANSFERASE 43 U/L (0-55); ALBUMIN 4.2 GM/DL (3.2-4.5); ALKALINE PHOSPHATASE 79 U/L (40-136); BILIRUBIN,TOTAL 1.1 MG/DL (0.1-1.0); BUN/CREATININE RATIO 8; CALCIUM 9.1 MG/DL (8.5-10.1); CARBON DIOXIDE 24 MMOL/L (21-32); CHLORIDE 96 MMOL/L (98-107); CREATININE SERUM 0.75 MG/DL (0.60-1.30); GFR ESTIMATED 110; GLUCOSE 98 MG/DL (70-105); LIPASE 26 U/L (8-78); POTASSIUM 3.8 MMOL/L (3.6-5.0); TOTAL PROTEIN 7.9 GM/DL (6.4-8.2)
[2021-04-09] MEDS ORDERED: NS IV 1000 ML 1,000 ML IV SCH (17:45)
--- NOTE | 2021-04-09 17:48 | Diagnostic Imaging Report ---
EXAMINATION: Chest radiograph, portable AP view. DATE: 04/09/2021 5:29 PM INDICATION: 50-year-old male, chest pain. COMPARISON: None. FINDINGS: Heart size and mediastinal contours are unremarkable. There is no identified pneumothorax. There is no large pleural effusion. There is no identified focal airspace consolidation. IMPRESSION: No identified acute cardiopulmonary abnormality. Dictated by: Dictated on workstation # [id number]
[2021-04-09 18:22] VITALS: BP 126/81
--- OUTSIDE RECORDS SUMMARY | 2021-04-09 23:48 | XMS REPORT | Clinical Summary ---
Author Author [facility] Organization [facility] Address Unknown Phone Unavailable Care Team Providers Care International Relations Professor Name Role Phone PCP Unavailable Allergies Not on File Medications Not on file Active Problems Not on file Social History Date Tobacco Use Types Packs/Day Years Used Never Assessed Sex Assigned at Date Recorded Not on file Last Filed Vital Signs Not on file Plan of Treatment Not on file Results Not on filefrom Last 3 Months
--- OUTSIDE RECORDS SUMMARY | 2021-04-09 23:48 | XMS REPORT | Clinical Summary ---
Author Author [facility] Organization [facility] Address Unknown Phone Unavailable Care Team Providers Care Pointer Machine Operator Name Role Phone Self, Referral PCP Unavailable Source Comments Some departments are not documenting in the electronic medical record. If you d o not see the information that you expected, contact Release of Information in [facility] [employer] Information Management department at [phone] for further assistan ce in locating additional records.[facility] Allergies Not on File Medications Not on file Active Problems Not on file Social History Date Tobacco Use Types Packs/Day Years Used Never Assessed Sex Assigned at Date Recorded Not on file Last Filed Vital Signs Not on file Plan of Treatment Health Maintenance Due Date Last Done Comments HIV SCREENING 1984 DTAP/TDAP VACCINES (1 - 1987 Tdap) HEPATITIS C SCREENING 1987 PHYSICAL (COMPREHENSIVE) 1987 EXAM COLORECTAL CANCER 2019 SCREENING SHINGLES RECOMBINANT 2019 VACCINE (1 of 2) INFLUENZA VACCINE 05/23/2021 Results Not on filefrom Last 3 Months
== END 2021-04-09 18:23 | disposition home or self-care (01) ==
LOC: EDUNIT# 16:49 → ER FS 16:50
DX: F10.129 Alcohol abuse with intoxication, unspecified (principal); K70.10 Alcoholic hepatitis without ascites; E66.9 Obesity, unspecified; Z68.37 Body mass index [BMI] 37.0-37.9, adult; Z79.82 Long term (current) use of aspirin
CPT/HCPCS: 36415; 71045; 80053; 83690; 84484; 85025; 93005; 99284; G0480; 80320

== ENCOUNTER 2021-04-10 19:03 | Emergency (ER) | payer OTHER ==
[~2021-04-10] VITALS: Ht 172.7 cm; Wt 104.3 kg
[2021-04-10 19:10] VITALS: BP 140/96
--- NOTE | 2021-04-10 19:23 | ED General ---
General Chief Complaint: General Problems/Pain Stated Complaint: SUBSTANCE ABUSE Source of Information: Patient, EMS Exam Limitations: No Limitations History of Present Illness Date Seen by Provider: Apr 10, 2021 Time Seen by Provider: 19:09 Initial Comments 50-year-old male with alcohol use disorder coming in via EMS from a friend's house due to alcohol intoxication. The patient had been on the phone with a friend saying he wanted to go to [facility]. The friends called an ambulance and they brought him here. The patient states he does drink alcohol daily and has been for months. A lot of this has to do with PTSD from being deployed. He denies any thoughts to wanting to harm himself or harm anyone els e. He states he has never harmed himself in the past. He states he drinks to numb the anxiousness he gets from his past. He denies any chest pain, shortness of breath, abdominal pain, nausea, vomiting, diarrhea, fever, chills, weakness, numbness, or any other concerns. He is tolerating p.o. and ambulating he states. Last drink a couple hours ago. Allergies and Home Medications Allergies Coded Allergies: No Known Drug Allergies (Unverified , 03/13/21) Home Medications Acetaminophen 500 Mg Tablet, 1,000 MG PO Q8H PRN for PAIN-MILD (1-4), (Reported) Aspirin 81 Mg Tab.chew, 81 MG PO DAILY Prescribed by: HANS GRANT on 03/15/21931 Metoprolol Succinate 50 Mg Tab.er.24h, 50 MG PO DAILY Prescribed by: HANS GRANT on 03/15/21931 Pantoprazole Sodium 40 Mg Tablet.dr, 40 MG PO BID Prescribed by: HANS GRANT on 03/15/21931 Patient Home Medication List Home Medication List Reviewed: Yes Review of Systems Review of Systems Constitutional: No fever EENTM: No blurred vision Respiratory: No cough, No short of breath Cardiovascular: No chest pain Gastrointestinal: No abdominal pain, No diarrhea, No nausea, No vomiting Genitourinary: No dysuria Musculoskeletal: No back pain Skin: No rash Psychiatric/Neurological: Anxiety, Depressed Hematologic/Lymphatic: No Symptoms Reported Immunological/Allergic: no symptoms reported All Other Systems Reviewed Negative Unless Noted: Yes Past [id number] Hx Patient Social History Alcohol Use?: Yes Past Medical History Surgeries: No Respiratory: No Cardiac: No Neurological: No Genitourinary: No Gastrointestinal: No Musculoskeletal: No Endocrine: No HEENT: No Cancer: No PTSD Family Medical History No Pertinent Family Hx Physical Exam Vital Signs Vital Signs - First Documented 04/10/21 19:10 Temp 36.7 Pulse 105 Resp 17 B/P (MAP) 140/96 (111) O2 Delivery Room Air Capillary Refill : Height, Weight, BMI Height: '" Weight: lbs. oz. kg; 35.00 BMI Method: General Appearance: No Apparent Distress, WD/WN Eyes: Bilateral Eye Normal Inspection, Bilateral Eye PERRL HEENT: PERRL/EOMI, Normal ENT Inspection, Pharynx Normal Neck: Full Range of Motion, Normal Inspection, Non Tender, Supple Respiratory: Chest Non Tender, Lungs Clear, Normal Breath Sounds, No Accessory Muscle Use, No Respiratory Distress Cardiovascular: Regular Rate, Rhythm, No Edema, Normal Peripheral Pulses Gastrointestinal: Non Tender, Soft; No Distended, No Guarding Back: Normal Inspection Extremity: Normal Capillary Refill, Normal Inspection, Normal Range of Motion, Non Tender Neurologic/Psychiatric: Alert, Oriented x3, No Motor/Sensory Deficits, Normal Mood/Affect Skin: Normal Color, Warm/Dry Lymphatic: No Adenopathy Progress/Results/Core Measures Suspected Sepsis SIRS Temperature: Pulse: Respiratory Rate: Blood Pressure / Mean: Results/Orders Vital Signs/I&O 04/10/21 19:10 Temp 36.7 Pulse 105 Resp 17 B/P (MAP) 140/96 (111) O2 Delivery Room Air Capillary Refill : Progress Note : Progress Note 50-year-old male with above history coming in due to alcohol intoxication. ABCs were intact and vitals are stable on presentation. Physical exam reassuring with no focal neurologic deficits. Although the patient does smell like alcohol, he is actually very functional, speaking in full sentences, answering questions appropriately, and ambulating without any ataxia or difficulty. Specifically, I asked the patient if he is having any psychiatric complaints such as suicidal ideation or homicidal ideation. He denies any of this. He states he does not want to and wants help. I offered the patient lab work and psychiatric screening with our screeners which he does not want. He states he just wants someone to drive him up to the [facility]. I discussed the patient's case with his friend that is with him, and he states he is willing to drive him there in the morning. The patient reiterates that this is what he wants, and he does not want to go through the formal screening process here. Given he has a safe place to go, with a safe person to drive, and clinically is not altered and seems to be of her right mind, I believe this is an appropriate decision. He was discharged home in stable condition with strict return precautions. Departure Impression Primary Impression: Alcohol intoxication Qualified Codes: F10.920 - Alcohol use, unspecified with intoxication, uncomplicated Disposition: HOME, SELF-CARE Condition: Stable Departure-Patient Inst. Decision time for Depature: 19:23 Referrals: NO,LOCAL PHYSICIAN (PCP/Family) Primary Care Physician Patient Instructions: Alcohol Intoxication ED Add. Discharge Instructions: You were brought in by ambulance to the emergency department requesting alcohol detox specifically at [facility]. I discussed with you that we can get blood work, have a psychiatric screener talk with you, and discuss if they deem it appropriate for you to be transferred to another facility. You said that you would prefer to just be taken to the [facility] tomorrow. I believe this is reasonable. Of course she should not drive while intoxicated and he should have your friend drive you. If you have any thoughts to harm herself or harm anyone else then please call 911 and present to the emergency department. If you have any other concerns you can also come to the ER. All discharge instructions reviewed with patient and/or family. Voiced understanding. SIVAKUMAR AGARWAL MD Apr 10, 2021 19:23
== END 2021-04-10 19:25 | disposition home or self-care (01) ==
LOC: EDUNIT# 19:03 → ER FS 19:04
DX: F10.129 Alcohol abuse with intoxication, unspecified (principal); Z79.82 Long term (current) use of aspirin
CPT/HCPCS: 99283